=== PATIENT | male | born 1960 | race Caucasian/White ===

== ENCOUNTER 2019-10-21 10:12 | Emergency (ER) | payer OTHER ==
--- NOTE | 2019-10-21 10:38 | EDPHYS ---
Physician Documentation [facility] Name: Karlo Nash Age: 58 yrs Sex: Male : 1960 Arrival Date: 10/21/2019 Time: 10:10 Bed 20 Private MD: ED Physician Aleksandr Hawkins HPI: 10/20 10:48 This 58 yrs old Male presents to ER via EMS with complaints of Needs snw medications. 10:48 Pt in halfway and requests medication refill. Onset: The symptoms/episode began/occurred snw suddenly. Severity of symptoms: At their worst the symptoms were very mild. It is unknown whether or not the patient has had similar symptoms in the past. It is unknown whether or not the patient has recently seen a physician. Historical: - Allergies: 10:10 No Known Allergies; aa5 - PMHx: 10:10 Arthritis; Back pain; Diabetes - IDDM; Chrohn's Disease; aa5 - PSHx: 10:10 Ileostomy; L knee; R shoulder; aa5 - Immunization history:: Adult Immunizations unknown. - Social history:: Smoking status: Patient reports the use of cigarette tobacco products. ROS: 10:46 Constitutional: Negative for fever, chills, and weight loss, Eyes: Negative for injury, snw pain, redness, and discharge, ENT: Negative for injury, pain, and discharge, Neck: Negative for injury, pain, and swelling, Cardiovascular: Negative for chest pain, palpitations, and edema, Respiratory: Negative for shortness of breath, cough, wheezing, and pleuritic chest pain, Abdomen/GI: Negative for abdominal pain, nausea, vomiting, diarrhea, and constipation, Back: Negative for injury and pain, : Negative for injury, bleeding, discharge, and swelling, MS/Extremity: Negative for injury and deformity, Neuro: Negative for headache, weakness, numbness, tingling, and seizure, Psych: Negative for depression, anxiety, suicide ideation, homicidal ideation, and hallucinations. 10:46 Constitutional: Positive for chronic pain. 10:46 Skin: Positive for abscess, of the medial aspect of left calf. Exam: 10:45 Constitutional: This is a well developed, well nourished patient who is awake, alert, snw and in no acute distress. Head/Face: Normocephalic, atraumatic. Eyes: Pupils equal round and reactive to light, extra-ocular motions intact. Lids and lashes normal. Conjunctiva and sclera are non-icteric and not injected. Cornea within normal limits. Periorbital areas with no swelling, redness, or edema. ENT: Nares patent. No nasal discharge, no septal abnormalities noted. Tympanic membranes are normal and external auditory canals are clear. Oropharynx with no redness, swelling, or masses, exudates, or evidence of obstruction, uvula midline. Mucous membranes moist. Neck: Trachea midline, no thyromegaly or masses palpated, and no cervical lymphadenopathy. Supple, full range of motion without nuchal rigidity, or vertebral point tenderness. No Meningismus. Chest/axilla: Normal chest wall appearance and motion. Nontender with no deformity. No lesions are appreciated. Cardiovascular: Regular rate and rhythm with a normal S1 and S2. No gallops, murmurs, or rubs. Normal PMI, no JVD. No pulse deficits. Respiratory: Lungs have equal breath sounds bilaterally, clear to auscultation and percussion. No rales, rhonchi or wheezes noted. No increased work of breathing, no retractions or nasal flaring. Abdomen/GI: Soft, non-tender, with normal bowel sounds. No distension or tympany. No guarding or rebound. No evidence of tenderness throughout. Back: No spinal tenderness. No costovertebral tenderness. Full range of motion. MS/ Extremity: Pulses equal, no cyanosis. Neurovascular intact. Full, normal range of motion. Neuro: Awake and alert, GCS 15, oriented to person, place, time, and situation. Cranial nerves II-XII grossly intact. Motor strength 5/5 in all extremities. Sensory grossly intact. Cerebellar exam normal. Normal gait. Psych: Awake, alert, with orientation to person, place and time. Behavior, mood, and affect are within normal limits. 10:45 Skin: Appearance: normal except for affected area, abscess, that is small, of the medial aspect of left calf, with fluctuance, minimal, pt taking Bactrim x 2 days. Vital Signs: 10:10 BP 159 / 108; Pulse 79; Resp 18 S; Temp 97.9(O); Pulse Ox 100% on R/A; Weight 81.65 kg aa5 (R); Height 5 ft. 6 in. (167.64 cm) (R); Pain 9/10; 10:50 BP 158 / 99; Pulse 82; Resp 18 S; Pulse Ox 99% on R/A; aa5 10:10 Body Mass Index 29.05 (81.65 kg, 167.64 cm) aa5 MDM: 10:17 Patient medically screened. snw 10:47 Data reviewed: vital signs, nurses notes. Data interpreted: Pulse oximetry: on room air snw is 100 %. Interpretation: normal. Counseling: I had a detailed discussion with the patient and/or guardian regarding: no narcotic refills from ED. Pt requests Oxycodone. FSBG 112mg/dl, pt states he takes insulin and is on Bactrim as well. Response to treatment: pt angry I will not give or refill pain medications other than motrin. 10/20 10:38 Order name: Glucose, Ancillary Testing; Complete Time: 10:39 EDMS 10/20 10:17 Order name: FSBS; Complete Time: 10:29 snw 10/20 10:36 Order name: Wound dressing; Complete Time: 10:57 snw Administered Medications: 10:53 Drug: Motrin 400 mg Route: PO; aa5 10:58 Follow up: Response: Medication administered at discharge. aa5 10:53 Drug: Bactrim (160 mg-800 mg (DS) 1 tablet Route: PO; aa5 10:57 Follow up: Response: Medication administered at discharge. aa5 Point of Care Testing: Blood Glucose: 10:27 Blood Glucose: 112 mg/dL; aa5 Ranges: Critical Glucose Levels:Adult <50 mg/dl or >400 mg/dl <40 mg/dl or >180 mg/dl Disposition: 11:08 Co-signature as Attending Physician, Aleksandr Hawkins MD. rn Disposition: 10/21/19 10:37 Discharged to Home. Impression: Cutaneous abscess of left lower limb, Patient's unintentional underdosing of medication regimen. - Condition is Stable. - Discharge Instructions: Skin Abscess, Medicine Refill at the Emergency Department, Rehydration, Adult. - Prescriptions for Bactrim DS 800- 160 mg Oral Tablet - take 1 tablet by ORAL route every 12 hours for 7 days; 14 tablet. - Medication Reconciliation Form, Thank You Letter, Antibiotic Education, Prescription Opioid Use form. - Follow up: Emergency Department; When: As needed; Reason: Worsening of condition. Follow up: Private Physician; When: 2 - 3 days; Reason: Recheck today's complaints, Continuance of care, Re-evaluation by your physician. Signatures: Dispatcher [employer] EDMS ZhouDebbi, Trudy, KALEE-C NDT INSPECTOR-Csnw Aleksandr Hawkins MD MD rn Calderon, Audri, RN RN aa5 Corrections: (The following items were deleted from the chart) 10:58 10:37 10/21/2019 10:37 Discharged to Home. Impression: Cutaneous abscess of left lower aa5 limb; Patient's unintentional underdosing of medication regimen. Condition is Stable. Forms are Medication Reconciliation Form, Thank You Letter, Antibiotic Education, Prescription Opioid Use. Follow up: Emergency Department; When: As needed; Reason: Worsening of condition. Follow up: Private Physician; When: 2 - 3 days; Reason: Recheck today's complaints, Continuance of care, Re-evaluation by your physician. snw
--- NOTE | 2019-10-21 10:38 | ER ---
Nurse's Notes [facility] Name: Karlo Nash Age: 58 yrs Sex: Male : 1960 Arrival Date: 10/21/2019 Time: 10:10 Bed 20 Private MD: Diagnosis: Cutaneous abscess of left lower limb;Patient's unintentional underdosing of medication regimen Presentation: 10/20 10:10 Chief complaint: EMS states: Pt is under custody of [place] [employer] and aa5 c/o not taking insulin and Oxycodone for approximately 24 hrs. EMS reports FSBG 124. Pt also reports "abscess" to left lower leg x 5 days ago, and reports he has been taking unknown antibiotics x 3 days. 10:10 Coronavirus screen: Proceed with normal triage. Patient denies a cough. Patient denies aa5 shortness of breath or difficulty breathing. Patient denies measured and/or subjective temperature greater than 100.4F prior to today's visit. Patient denies travel on a cruise ship or to a country the [facility] currently lists as an affected area. Patient denies contact with known and/or suspected case of COVID-19. Ebola Screen: Patient negative for fever greater than or equal to 101.5 degrees Fahrenheit, and additional compatible Ebola Virus Disease symptoms. Initial Sepsis Screen: Does the patient meet any 2 criteria? No. Patient's initial sepsis screen is negative. Does the patient have a suspected source of infection? No. Patient's initial sepsis screen is negative. Risk Assessment: Do you want to hurt yourself or someone else? Patient reports no desire to harm self or others. Onset of symptoms was October 21, 2019. 10:10 Method Of Arrival: EMS: [facility] aa5 10:10 Acuity: ALENA 3 aa5 Historical: - Allergies: 10:10 No Known Allergies; aa5 - PMHx: 10:10 Arthritis; Back pain; Diabetes - IDDM; Chrohn's Disease; aa5 - PSHx: 10:10 Ileostomy; L knee; R shoulder; aa5 - Immunization history:: Adult Immunizations unknown. - Social history:: Smoking status: Patient reports the use of cigarette tobacco products. Screenin:20 Abuse screen: Denies threats or abuse. Nutritional screening: No deficits noted. aa5 Tuberculosis screening: No symptoms or risk factors identified. Fall Risk None identified. Assessment: 10:10 General: Appears comfortable, Behavior is calm, cooperative. Pain: Complains of pain in aa5 medial aspect of left calf and chronic back pain Pain does not radiate. Pain currently is 9 out of 10 on a pain scale. Quality of pain is described as sharp, tender, Is continuous. Neuro: Level of Consciousness is awake, alert, obeys commands, Oriented to person, place, time, situation. Cardiovascular: Patient's skin is warm and dry. Respiratory: Airway is patent Respiratory effort is even, unlabored, Respiratory pattern is regular, symmetrical. GI: Ileostomy site is clean and dry. Ostomy appliance is intact. : No signs and/or symptoms were reported regarding the genitourinary system. EENT: No signs and/or symptoms were reported regarding the EENT system. Derm: Skin is pink, warm \\T\\ dry. Abscess located on medial aspect of left calf is quarter sized, has no drainage, is raised. Musculoskeletal: Range of motion: intact in all extremities. 10:30 Reassessment: Abscess to left lower leg lanced by [employer], cleaned with Hibiclens and saline aa5 prior to being lanced, and dressed with gauze and Kerlix after being lanced. . 10:53 Reassessment: Patient is alert, oriented x 3, equal unlabored respirations, skin aa5 warm/dry/pink. Vital Signs: 10:10 BP 159 / 108; Pulse 79; Resp 18 S; Temp 97.9(O); Pulse Ox 100% on R/A; Weight 81.65 kg aa5 (R); Height 5 ft. 6 in. (167.64 cm) (R); Pain 9/10; 10:50 BP 158 / 99; Pulse 82; Resp 18 S; Pulse Ox 99% on R/A; aa5 10:10 Body Mass Index 29.05 (81.65 kg, 167.64 cm) aa5 ED Course: 10:10 Patient arrived in ED. aa5 10:10 Arm band placed on Patient placed in an exam room, on a stretcher. aa5 10:10 Patient has correct armband on for positive identification. Bed in low position. Call aa5 light in reach. Side rails up X2. [place] [employer] at bedside. 10:13 Katherin Morton, RN is Primary Nurse. aa5 10:13 Trudy Werner FNP-C is PHCP. snw 10:13 Aleksandr Hawkins MD is Attending Physician. snw 10:20 Triage completed. aa5 10:55 No provider procedures requiring assistance completed. Patient did not have IV access aa5 during this emergency room visit. Administered Medications: 10:53 Drug: Motrin 400 mg Route: PO; aa5 10:58 Follow up: Response: Medication administered at discharge. aa5 10:53 Drug: Bactrim (160 mg-800 mg (DS) 1 tablet Route: PO; aa5 10:57 Follow up: Response: Medication administered at discharge. aa5 Point of Care Testing: Blood Glucose: 10:27 Blood Glucose: 112 mg/dL; aa5 Ranges: Outcome: 10:37 Discharge ordered by . snw 10:53 Discharged to Law Enforcement aa5 10:53 Condition: stable 10:53 Discharge instructions given to patient, Instructed on discharge instructions, follow up and referral plans. medication usage, Demonstrated understanding of instructions, follow-up care, medications, Prescriptions given X 1. 10:55 Patient left the ED. aa5 Signatures: Trudy Werner FNP-C DEPUTY SHERIFF-Csnw Katherin Morton RN RN aa5 Corrections: (The following items were deleted from the chart) 10:20 10:10 Chief complaint: EMS states: Pt is under custody of [place] [employer] aa5 and c/o not taking insulin and Oxycodone for approximately 24 hrs. EMS reports FSBG 124 aa5 11:01 10:58 Patient left the ED. aa5 aa5
[2019-10-21] MEDS ORDERED: SMZ./TMP. 800/160 MG TABLET ONE (10:53)
[2019-10-21] MEDS ORDERED: IBUPROFEN 400 MG TAB ONE (10:53)
== END 2019-10-21 10:58 | disposition home or self-care (01) ==
LOC: ER 10:12
DX: Z91.128 Patient's intentional underdosing of medication regimen for other reason (principal); F17.210 Nicotine dependence, cigarettes, uncomplicated
CPT/HCPCS: 82947; 99283